=== PATIENT | female | born 1975 | race Caucasian/White ===

== ENCOUNTER 2018-06-05 20:55 | Emergency (ER) | payer SELFPAY ==
[~2018-06-05] VITALS: Ht 157.5 cm; Wt 63.6 kg
[~2018-06-05 20:55] MED LIST: HYDR50CA10 PO; LORA10TA7 PO; SERT100T12 PO; TRAZ-219 PO
[2018-06-05 21:15] VITALS: BP 138/81
[2018-06-05] MEDS ORDERED: KETOROLAC TROMETHAMINE 30 MG/ML VIAL IM ONE (22:00)
== END 2018-06-05 22:25 | disposition home or self-care (01) ==
LOC: EMS 20:57
DX: S93.402A Sprain of unspecified ligament of left ankle, initial encounter (principal); F32.9 Major depressive disorder, single episode, unspecified; Z90.49 Acquired absence of other specified parts of digestive tract; X58.XXXA Exposure to other specified factors, initial encounter; Y93.56 Activity, jumping rope; Y92.39 Other specified sports and athletic area as the place of occurrence of the external cause; Y99.8 Other external cause status
CPT/HCPCS: 29515; 73610; 73630; 96372; 99284; J1885; 29540

== ENCOUNTER 2025-04-17 14:31 | Emergency (ER) | payer MEDICAID, OTHER ==
[~2025-04-17] VITALS: Ht 160 cm; Wt 63.2 kg
[~2025-04-17 14:31] MED LIST changes: +AMOX-457 PO; -HYDR50CA10 PO; -LORA10TA7 PO; -SERT100T12 PO; -TRAZ-219 PO
[2025-04-17 14:49] VITALS: TEMP 99
[2025-04-17 15:17] LABS: BASOPHILS % (AUTO) 0.8 % (0.0-2.0); EOSINOPHILS % (AUTO) 0.8 % (1.0-6.0); HEMATOCRIT 40.8 % (36-46); LYMPHOCYTES # (AUTO) 1.6 K/uL (1.0-4.8); LYMPHOCYTES % (AUTO) 22.9 % (22.0-44.0); MEAN CORPUSCULAR HEMOGLOBIN 31.9 pg (26.0-34.0); MEAN CORPUSCULAR HGB CONC 34.4 G/dL (31.0-37.0); MEAN CORPUSCULAR VOLUME 93 fL (80-100); MONOCYTES # (AUTO) 0.4 K/uL (0.1-1.0); MONOCYTES % (AUTO) 6.4 % (2.0-9.0); NEUTROPHILS # (AUTO) 4.8 K/uL (1.8-7.7); NEUTROPHILS % (AUTO) 69.1 % (40.0-70.0); PLATELET COUNT (AUTO) 295 K/uL (150-450); WHITE BLOOD COUNT (AUTO) 6.9 K/uL (4.5-11.0)
[2025-04-17 15:21] LABS: APPEARANCE,URINE CLEAR (CLEAR); BILIRUBIN,URINE NEGATIVE (NEGATIVE); COLOR,URINE YELLOW (YELLOW); GLUCOSE, URINE (UA) NEGATIVE (NEGATIVE); KETONES,URINE TRACE mg/dL (NEGATIVE); LEUKOCYTE ESTERASE ,URINE NEGATIVE (NEGATIVE); NITRATE,URINE NEGATIVE (NEGATIVE); OCCULT BLOOD,URINE NEGATIVE (NEGATIVE); PROTEIN,URINE TRACE mg/dL (NEGATIVE); SPECIFIC GRAVITIY, URINE 1.025 (1.003-1.030); UROBILINOGEN,URINE <=1.0 mg/dL (<=1.0)
[2025-04-17 15:24] LABS: CALCIUM, TOTAL 9.5 mg/dL (8.8-10.5); CREATININE 0.98 mg/dL (0.60-1.30); POTASSIUM 3.9 mmol/L (3.5-5.1)
[2025-04-17 15:48] LABS: ALBUMIN 4.4 g/dL (3.4-5.0); BILIRUBIN,DIRECT 0.2 mg/dL (0.00-0.20); BILIRUBIN,TOTAL 0.5 mg/dL (0.1-1.0)
[2025-04-17 17:29] VITALS: BP 126/72; PULSE 88; RESP 16; O2SAT 99
[2025-04-17] MEDS ORDERED: ONDA-104 PO (17:47)
[2025-04-17] MEDS ORDERED: TAMS0.4C94 PO (17:47)
[2025-04-17] MEDS ORDERED: HYDR-4062 PO (17:47)
[2025-04-17] MEDS ORDERED: POLY119P3 PO (17:47)
== END 2025-04-17 18:53 | disposition home or self-care (01) ==
LOC: EMS 14:38
DX: N20.9 Urinary calculus, unspecified (principal); F32.A Depression, unspecified; Z87.442 Personal history of urinary calculi; Z90.49 Acquired absence of other specified parts of digestive tract; Z98.890 Other specified postprocedural states; Z79.899 Other long term (current) drug therapy
CPT/HCPCS: 80048; 80076; 81003; 83690; 84703; 85025; 99283

== ENCOUNTER 2025-08-25 18:38 | Emergency (ER) | payer OTHER ==
[~2025-08-25] VITALS: Ht 160 cm; Wt 60.5 kg
[~2025-08-25 18:38] MED LIST changes: +HYDR-4062 PO; +ONDA-104 PO; +POLY119P3 PO; +TAMS0.4C94 PO
[2025-08-25 18:41] VITALS: TEMP 98.3
[2025-08-25] MEDS ORDERED: TRAZ-257 PO (18:51)
[2025-08-25 19:18] LABS: PLATELET COUNT (AUTO) 310 K/uL (150-450); RED BLOOD CELL COUNT(AUTO) 4.30 MIL/uL (4.00-5.20); RED CELL DISTRIBUTION WIDTH 12.8 % (11.5-14.5); WHITE BLOOD COUNT (AUTO) 6.5 K/uL (4.5-11.0)
[2025-08-25 19:22] LABS: CALCIUM, TOTAL 9.5 mg/dL (8.8-10.5); CREATININE 0.87 mg/dL (0.60-1.30); GLOMERULAR FILTR. RATE CALC > 60 mL/min (>60); GLUCOSE,RANDOM 87 mg/dL (70-110); SODIUM SERUM 137 mmol/L (136-145); UREA NITROGEN, BLOOD 18 mg/dL (7-18)
[2025-08-25 19:31] LABS: TROPONIN I-HIGH SENSITIVITY 5 ng/L (<51)
[2025-08-25 19:45] VITALS: BP 148/88; PULSE 78; RESP 18; O2SAT 99
[2025-08-25] MEDS: SODIUM CHLORIDE 0.9% 1,000 ML IV ONE (20:01)
== END 2025-08-25 21:13 | disposition home or self-care (01) ==
LOC: EMS 18:47
DX: R20.2 Paresthesia of skin (principal); F41.9 Anxiety disorder, unspecified; F32.A Depression, unspecified; Z90.49 Acquired absence of other specified parts of digestive tract; Z87.442 Personal history of urinary calculi; Z79.899 Other long term (current) drug therapy
CPT/HCPCS: 99284; 96360; 80048; 84484; 84703; 85025; 36415; 93005; G0480; J7030